=== PATIENT | male | born 1980 | race American Indian/Alaskan Native ===

== ENCOUNTER 2018-12-02 17:46 | Emergency (ER) | payer SELFPAY ==
[2018-12-02 17:53] VITALS: BP 134/78
--- NOTE | 2018-12-02 17:54 | Emergency Department Report ---
Chief Complaint: Urogenital-Male Stated Complaint: STD Time Seen by Provider: 12/02/18 17:51 - HPI History of Present Illness: pt presents for routine STD screening pt denies any symptoms at all denies penile discharge, dysuria, testicular pain or edema, abdominal pain, N/V, fever MSE screening note: Focused history and physical exam performed. Due to findings the following was ordered: ED Medical Decision Making - Medical Decision Making pt is asymptomatic presenting for routine STD testing. pt given referrals to the health department and clinics. given list of community resources ED Disposition for MSE Clinical Impression: Concern about STD in male without diagnosis Disposition: Z- MED SCREENING EXAM-LEFT Is pt being admited?: No Does the pt Need Aspirin: No Condition: Stable Instructions: Sexually Transmitted Diseases (ED), Safe Sex (ED) Additional Instructions: please be seen by the health department or a primary care clinic for routine testing Referrals: [facility] [Outside] - 2-3 Days [facility] [Outside] - 2-3 Days Time of Disposition: 17:53 Print Language: GERMAN
== END 2018-12-02 17:58 | disposition left against medical advice (07) ==
LOC: ED 17:46
DX: Z11.3 Encounter for screening for infections with a predominantly sexual mode of transmission (principal)
CPT/HCPCS: 99281

== ENCOUNTER 2019-05-21 11:17 | Emergency (ER) | payer SELFPAY ==
[2019-05-21] MEDS ORDERED: SODIUM CHLORIDE 0.9% 1000 ML 1,000 ML IV ONE (11:29)
--- NOTE | 2019-05-21 11:29 | Event Note ---
ED Screening Note ED Screening Note: has been donating plasma for >1 year syncope while waiting in line. no head injury or headache . right hip pain This initial assessment/diagnostic orders/clinical plan/treatment(s) is/are subject to change based on patients health status, clinical progression and re- assessment by fellow clinical providers in the ED. Further treatment and workup at subsequent clinical providers discretion. Patient/guardian urged not to elope from the ED as their condition may be serious if not clinically assessed and m anaged. Initial orders include: BMP cbc needs IVF
[2019-05-21 11:32] VITALS: BP 123/73
--- NOTE | 2019-05-21 12:18 | XRay Report ---
RIGHT HIP 2 VIEWS INDICATION: pain after fall. COMPARISON: None. IMPRESSION: No acute osseous or soft tissue abnormality. No significant DJD. Signer Name: Elpidio Eaton Jr, MD Signed: 05/21/2019 12:14 PM Workstation Name: [id number]
[2019-05-21 12:31] LABS: Alanine Aminotransferase 8 units/L (7-56); Albumin 3.7 g/dL (3.9-5); BUN/Creatinine Ratio 8; Blood Urea Nitrogen 11 mg/dL (9-20); Calcium 9.5 mg/dL (8.4-10.2); Hemolysis Index 8
[2019-05-21] MEDS ORDERED: oxyCODONE /ACETAMINOPHEN 5-325MG TAB PO ONE (12:32)
[2019-05-21] MEDS ORDERED: TETANUS,DIPH,PERTUSS(ACELL) VACCINE 0.5 ML SYRINGE IM ONE (12:37)
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
[2019-05-21] MEDS ORDERED: NEOMY 3.5 MG/BACIT 400 UNITS/POLY B 5000 UNITS/GM OINT PACKET TP ONE (13:09)
[2019-05-21 14:18] LABS: Hematocrit 39.6 % (35.5-45.6); Hemoglobin 13.2 gm/dl (11.8-15.2); Mean Corpuscular HGB Conc 33 % (32-34); Mean Corpuscular Volume 89 fl (84-94); Platelet Count 395 K/mm3 (140-440); Red Blood Count 4.45 M/mm3 (3.65-5.03); Red Cell Distribution Width 14.7 % (13.2-15.2)
[2019-05-21 14:54] LABS: Eosinophils % (Manual) 0 % (0.0-4.3); Total Cells Counted 100
[2019-05-21 14:55] LABS: Platelet Estimate Consistent w Auto; RBC Morphology Normal
== END 2019-05-21 15:29 | disposition home or self-care (01) ==
LOC: ED 11:17
DX: S50.311A Abrasion of right elbow, initial encounter (principal); I51.7 Cardiomegaly; R94.31 Abnormal electrocardiogram [ECG] [EKG]; R55 Syncope and collapse; F17.200 Nicotine dependence, unspecified, uncomplicated; X58.XXXA Exposure to other specified factors, initial encounter; Y93.89 Activity, other specified; Y92.89 Other specified places as the place of occurrence of the external cause; Y99.8 Other external cause status
CPT/HCPCS: 36415; 73502; 80048; 80053; 82550; 82962; 84484; 85007; 85025; 90471; 90715; 93005; 93010; 96365; 99284; J7030; A6250